=== PATIENT | female | born 1990 | race Caucasian/White ===

== ENCOUNTER → 2017-11-16 09:57 | Outpatient (CLI) | payer BC, SELFPAY ==
[2017-11-16 13:05] LABS: hCG Titer Quant., Serum 5942 mIU/mL (<9 non-preg)
== END ==
PROVIDERS: Visit Provider Obstetrics & Gynecology
DX: N91.2 Amenorrhea, unspecified (principal)
CPT/HCPCS: 36415; 84702

== ENCOUNTER → 2017-11-18 11:48 | Outpatient (CLI) | payer BC, SELFPAY ==
[2017-11-18 15:28] LABS: Chlamydia Trachomatis by PCR Negative (Negative); Neisserai gonorrhoeae by PCR Negative (Negative); Probe Check PASS; Sample Adequacy Control PASS; Specimen Processing Control PASS
[2017-11-22 10:17] LABS: HPV Reflexed? NOT INDICATED
== END ==
PROVIDERS: Visit Provider Obstetrics & Gynecology
DX: Z11.3 Encounter for screening for infections with a predominantly sexual mode of transmission (principal); Z12.4 Encounter for screening for malignant neoplasm of cervix
CPT/HCPCS: 87491; 87591; 88175; G0145

== ENCOUNTER → 2017-12-16 10:57 | Outpatient (CLI) | payer BC, SELFPAY ==
[2017-12-16 15:24] LABS: Absolute Lymphocyte Count 4.12 X10^3/ul (0.83-4.51); Absolute Neutrophil Count 9.8 X10^3/uL (2.0-7.7); Basophil# 0.03 X10^3/uL; Basophil% 0.2 % (0-1); Eosinophil# 0.13 X10^3/uL; Eosinophils% 0.8 % (0-5); Hematocrit 38.8 % (37-47); Lymphocyte # 4.12 X10^3/ul (4.0); Lymphocyte % 26.8 % (19-41); Mean Corp Hgb Conc 33.5 g/gl (32-36); Mean Corpuscular Hgb 29.3 pg (27.0-32.0); Mean Corpuscular Volume 87.4 fL (81-99); Mean Platelet Vol. 9.4 fl (6.2-12.0); Monocyte# 1.26 X10^3/uL; Monocyte% 8.2 % (0-10); Neutrophil % 63.8 % (47-70); Platelet Count 319 K/mm3 (150-450); RBC Distribution Width CV 13.3 % (11.6-14.6); RBC Distribution Width SD 42.7 fl (35.1-43.9); Red Blood Count 4.44 M/mm3 (4.2-5.4); White Blood Count 15.4 K/mm3 (4.4-11.0)
[2017-12-16 15:26] LABS: Color, Urine Yellow (Yellow); Glucose, Dipstick Normal (Normal); Leukocyte Esterase-Dipstick Negative /ul (Negative); Nitrite-Dipstick Negative (Negative); Occult Blood-Urine 10 /ul (Negative); POSITIVE COUNT NO; POSITIVE DIFFERENTIAL NO; POSITIVE MORPHOLOGY NO; Protein-Dipstick 15 mg/dl (Negative); Urine Bilirubin Dipstick Negative (Negative); Urine Clarity Clear (Clear); Urine Urobilinogen Normal (Normal)
[2017-12-16 15:30] LABS: Ketone-Dipstick 150 mg/dl (Negative)
[2017-12-16 15:52] LABS: Thyroid Stim Hormone (TSH) 1.49 uIU/mL (0.358-3.74)
[2017-12-16 16:16] LABS: Amphetamine Urine VISTA NEGATIVE (<1000 ng/mL); Barbiturate Urine VISTA NEGATIVE (< 200 ng/mL); Benzodiazepine Urine VISTA NEGATIVE (< 200 ng/mL); Cocaine Urine VISTA NEGATIVE (< 300 ng/mL); Ecstacy Urine VISTA NEGATIVE (< 500 ng/mL); Methadone Urine VISTA NEGATIVE (< 300 ng/mL); PCP Urine VISTA NEGATIVE (< 25 ng/mL); THC Urine VISTA NEGATIVE (< 50 ng/mL); Vista UDS pH Range 5
[2017-12-17 00:19] LABS: Prenatal RPR NONREACTIVE (NONREACTIVE)
[2017-12-17 10:57] LABS: HIV - WCH Non-Reactive (Nonreactive); Rubella IgG 80.3 IU/mL; Vitamin D,25 Hydroxy 22.6 ng/mL (29.95-100.01)
[2017-12-18 13:48] LABS: HEPATITIS B SURFACE AG Negative (Negative); Hep C Antibodies <0.1 s/co ratio (0.0-0.9)
== END ==
PROVIDERS: Visit Provider Obstetrics & Gynecology
DX: O26.891 Other specified pregnancy related conditions, first trimester (principal); R82.99 Other abnormal findings in urine; Z3A.00 Weeks of gestation of pregnancy not specified
CPT/HCPCS: 36415; 80307; 81002; 82306; 84443; 85025; 86703; 86762; 86803; 87086; 87088; 87340

== ENCOUNTER → 2018-02-11 09:59 | Outpatient (CLI) | payer BC, SELFPAY ==
[2018-02-15 14:07] LABS: AFP MoM Value 1.55 (.); AFP Value-EIA 60.6 ng/mL (.); Comment Report (.); DIA MoM Value 1.57 (.); DIA Value-EIA 249.65 pg/mL (.); DSR (By Age) 850 (.); DSR (Second Trimester) 10000 (.); Gestat. Age Based On As provided (.); Gestational Age 17.7 WEEKS (.); Insulin Dep Diabetes No (.); Maternal Age At EDD 28.1 yr (.); hCG MoM 0.44 (.); hCG Value 11827 mIU/mL (.)
== END ==
PROVIDERS: Visit Provider Obstetrics & Gynecology
DX: Z34.82 Encounter for supervision of other normal pregnancy, second trimester (principal)
CPT/HCPCS: 36415; 82105; 82677; 84702; 86336

== ENCOUNTER → 2018-04-26 08:55 | Outpatient (CLI) | payer BC, SELFPAY ==
[2018-04-26 10:37] LABS: Hematocrit 33.6 % (37-47); Hemoglobin 11.2 g/dl (12.0-15.0); Mean Corp Hgb Conc 33.3 g/gl (32-36); Mean Platelet Vol. 9.9 fl (6.2-12.0); Platelet Count 321 K/mm3 (150-450); RBC Distribution Width CV 13.1 % (11.6-14.6); RBC Distribution Width SD 40.6 fl (35.1-43.9); Red Blood Count 3.86 M/mm3 (4.2-5.4); Scan Indicated on CBC? Y/N NO; White Blood Count 12.6 K/mm3 (4.4-11.0)
[2018-04-26 10:44] LABS: Glucose Challenge Gest 1H 50g 149 mg/dL (70-140)
--- OUTSIDE RECORDS SUMMARY | 2018-06-12 07:26 | XMS RPT_ITS ---
:1990 Author Organization OHIP Care Team Providers Name Role Phone Minerva, Telma Attending Unavailable Minerva, Summer Attending Unavailable Murrell-Sudheer, Summer Referring Unavailable Kb Song Primary Care Unavailable Murrell-Sudheer, Summer Attending Unavailable Murrell-Sudheer, Summer Attending Unavailable Sudheer, Summer Attending Unavailable Murrell-Sudheer, Summer Attending Unavailable Kb Song Primary Care Unavailable Sudheer, Summer Attending Unavailable PROBLEMS PROBLEMS DATE TYPE CONDITION / CODE ATTENDING STATUS SOURCE 05/09/2018 Unknown Z34.83 - Encounter Minerva Active [place] for supervision of [facility] other normal Hospital , third Repository trimester / Z34.83(ICD-10) 02/11/2018 Unknown Z34.82 - Encounter Minerva Active [place] for supervision of [facility] other normal Hospital , second Repository trimester / Z34.82(ICD-10) 12/16/2017 Unknown Z34.81 - Encounter Minerva Active [place] for supervision of [facility] other normal Hospital , first Repository trimester / Z34.81(ICD-10) 11/18/2017 Unknown Z11.3 - Encounter Minerva Active [place] for screening for [facility] infections with a Hospital predominantly Repository sexual mode of transmission / Z11.3(ICD-10) 11/18/2017 Unknown Z12.4 - Encounter Minerva Active [place] for screening for [facility] malignant neoplasm Hospital of cervix / Repository Z12.4(ICD-10) 11/18/2017 Unknown Z32.01 - Encounter Minerva Active [place] for test, [facility] result positive / Hospital Z32.01(ICD-10) Repository 11/16/2017 Unknown N91.2 - Amenorrhea, Minerva Active [place] unspecified / [facility] N91.2(ICD-10) Hospital Repository PROCEDURES PROCEDURES No Procedure Records FoundRESULTS RESULTS VITAMIN D,25 HYDROXY Collected: 2018 Status: F Source: [place] 9:20 AM [facility] HOSPITAL REPOSITORY TYPE CODE TESTS RESULT OUT OF REFERENCE UNITS RANGE LAB L506.1000 29.95-100.01 ng/mL Low Vitamin D 20.8 25-OH Result Comment: Vitamin D 25(OH) Status Range Deficiency <20 ng/mL (50nmol/L) Insuffciency 20 - 30 ng/mL (50 - 75 nmol/L) Sufficiency 30 - 100 ng/mL (75 - 250 nmol/L) Toxicity >100 ng/mL (>250 nmol/L) Performed By: #### L506.1000 #### [facility] [address] [place], [place], [address] GESTATIONAL GTT 3HR Collected: 05/09/2018 Status: F Source: [place] 100G 7:00 AM [facility] REPOSITORY Order Comment: Is Patient Fasting? Y TYPE CODE TESTS RESULT OUT OF RANGE REFERENCE UNITS LAB L501.0650 <105 mg/dL Normal GLU 82 GTT-FASTING Result Comment: GLUCOSE TOLERANCE TEST FOR Reference Interval GESTATIONAL DIABETES Fasting <105 mg/dL 1 hour <190 mg/dl 2 hour <165 mg/dl 3 hour <145 mg/dl LAB L501.0660 <190 mg/dL Normal GLU GTT- 1HR 138 LAB L501.0670 <165 mg/dL Normal GLU GTT- 2HR 147 LAB L501.0680 <145 L High GLU GTT- 3HR 147 Performed By: #### L500.4710 #### [facility] [address] [place], [place], [address] CBC-COMPLETE BLOOD CNT Collected: 04/26/2018 Status: F Source: [place] NO DIFF 9:00 AM [facility] REPOSITORY TYPE CODE TESTS RESULT OUT OF RANGE REFERENCE UNITS LAB L100.1000 4.4-11.0 K/mm3 High WBC 12.6 LAB L100.1200 4.2-5.4 M/mm3 Low RBC 3.86 LAB L100.1300 12.0-15.0 g/dl Low HGB 11.2 LAB L100.1400 37-47 % Low HCT 33.6 LAB L100.1500 81-99 fL Normal MCV 87.0 LAB L100.1600 27.0-32.0 pg Normal MCH 29.0 LAB L100.1700 32-36 g/gl Normal MCHC 33.3 LAB L100.1810 11.6-14.6 % Normal RDW CV 13.1 LAB L100.1820 35.1-43.9 fl Normal RDW SD 40.6 LAB L100.1900 150-450 K/mm3 Normal PLT 321 LAB L100.2000 6.2-12.0 fl Normal MPV 9.9 Performed By: #### L100.0500 #### [facility] [address] [place], [address] GLUCOSE CHALLENGE GEST Collected: 04/26/2018 Status: F Source: [place] 1H 50G 9:00 AM [facility] REPOSITORY TYPE CODE TESTS RESULT OUT OF RANGE REFERENCE UNITS LAB L501.0250 70-140 mg/dL High GLU GEST 149 50g 1H Performed By: #### L501.0250 #### [facility] [address] [place], [address] AFP TETRA QUAD Collected: 02/11/2018 Status: F Source: [place] SCREEN 10:05 AM [facility] REPOSITORY Order Comment: Is Patient ? Y Enter Completed Weeks of Gestation: 17.5 Patient's Weight (LBS.): 162 Race: / White Number of Fetuses: 1 Is Patient Insulin-Dependent Diabetic?: N TYPE CODE TESTS RESULT OUT OF REFERENCE UNITS RANGE LAB L3290.110 . 0 TEST RESULTS: Normal *Screen Negative* LAB L3290.120 . WEEKS 0 GESTATIONAL AGE Normal 17.7 LAB L3290.130 . 0 GEST AGE FROM As Normal provided LAB L3290.140 . yr 1 MATRNL AGE @SRI Normal 28.1 LAB L3290.150 . 0 RACE Normal LAB L3290.160 . lbs 0 WEIGHT Normal 162 LAB L3290.170 . 0 INS DEP DIABETE No Normal LAB L3290.180 . 0 MULT GESTATION No Normal LAB L3290.190 . ng/mL 0 AFP VALUE-EIA Normal 60.6 LAB L3290.200 . 0 AFP MOM VALUE Normal 1.55 LAB L3290.210 . mIU/mL 0 HCG VALUE Normal 81858 LAB L3290.220 . 0 HCG MOM Normal 0.44 LAB L3290.230 . ng/mL 0 UE3 VALUE Normal 1.41 LAB L3290.240 . 0 UE3 MOM Normal 1.23 LAB L3290.250 . pg/mL 0 ANU VALUE-EIA Normal 249.65 LAB L3290.260 . 0 ANU MOM VALUE Normal 1.57 LAB L3290.270 . 0 OSBR RISK Normal 2393 LAB L3290.280 . 0 DSR 2ND TRIMEST Normal 22202 LAB L3290.290 . 0 DSR (BY AGE) Normal 850 LAB L3290.310 . 0 T18 RISK Normal Not increased LAB L3290.320 . 0 T18 (BY AGE) Normal 1:3310 LAB L3290.330 . 0 INTERPRETATION Normal Comment Result Comment: Interpretation: Screen Negative This result is screen negative for OSB, Down Syndrome and Trisomy 18. The AFP MoM and patient specific risks calculated are based on the gestational age and the clinical information provided. This test can identify up to 80% of open neural tube defects. Closed neural tube defects and some open defects may not be detected by this test. The combination of maternal age, AFP, hCG, uE3, and ANU identifies 75-80% of Down Syndrome. The combination of maternal age, AFP, hCG and uE3 identifies 60% of Trisomy 18 pregnancies. The [employer] recommends amniocentesis be offered to women age 35 and older. Recalculations are not recommended when gestational dating by LMP and ultrasound are within 10 days. Performed By: #### L3290.0100 #### [facility] (refer to report for specific site) refer to report for address and phone number URINE DRUG SCREEN Collected: 12/16/2017 Status: F Source: [place] (Mass RootsTA) 10:57 AM [facility] REPOSITORY Order Comment: List of Drugs Taken or Suspected? UNK TYPE CODE TESTS RESULT OUT OF RANGE REFERENCE UNITS LAB L505.0075 TO BE Normal CONFIRMED Result Comment: CONFIRMATORY TESTING FOR ALL POSITIVE URINE DRUG SCREEN RESULTS WILL ONLY BE SENT OUT UPON PHYSICIAN ORDER. VISTA Urine Drug Screen methods provide only preliminary analytical test results. A more specific alternate chemical method must be used in order to obtain a confirmed analytical result. Gas chromatography/mass spectrometery (GC/MS) is the preferred confirmatory method. Clinical consideration and professional judgement should be applied to any drug of abuse test result, particularly when preliminary positive results are used. URINE TCA TESTING MUST BE ORDERED SEPARATELY. USE TEST MNEMONIC: [facility] LAB L505.5005 VISTA UDS PH 5 Normal LAB L505.5015 <1000 ng/mL AMPHETAMINES Normal NEGATIVE LAB L505.5025 < 200 ng/mL BARBITIURATES Normal NEGATIVE LAB L505.5035 < 200 ng/mL BENZODIAZIPINE Normal NEGATIVE LAB L505.5045 < 300 ng/mL COCAINE Normal NEGATIVE LAB L505.5055 < 500 ng/mL ECSTACY Normal NEGATIVE LAB L505.5065 < 300 ng/mL METHADONE Normal NEGATIVE LAB L505.5075 < 300 ng/mL OPIATES Normal NEGATIVE LAB L505.5085 < 25 ng/mL PCP Normal NEGATIVE LAB L505.5095 < 50 ng/mL THC Normal NEGATIVE Performed By: #### L505.5000 #### [facility] [address] [place], [place], [id number] CBC W/DIFF, AUTOMATED Collected: 12/16/2017 Status: F Source: [place] 10:57 AM [facility] REPOSITORY TYPE CODE TESTS RESULT OUT OF RANGE REFERENCE UNITS LAB L100.1000 4.4-11.0 K/mm3 High WBC 15.4 LAB L100.1200 4.2-5.4 M/mm3 Normal RBC 4.44 LAB L100.1300 12.0-15.0 g/dl Normal HGB 13.0 LAB L100.1400 37-47 % Normal HCT 38.8 LAB L100.1500 81-99 fL Normal MCV 87.4 LAB L100.1600 27.0-32.0 pg Normal MCH 29.3 LAB L100.1700 32-36 g/gl Normal MCHC 33.5 LAB L100.1810 11.6-14.6 % Normal RDW CV 13.3 LAB L100.1820 35.1-43.9 fl Normal RDW SD 42.7 LAB L100.1900 150-450 K/mm3 Normal PLT 319 LAB L100.2000 6.2-12.0 fl Normal MPV 9.4 LAB L100.2100 47-70 % Normal NEUT% 63.8 LAB L100.2200 19-41 % Normal LY% 26.8 LAB L100.2300 0-10 % Normal MONO% 8.2 LAB L100.2400 0-5 % Normal EO% 0.8 LAB L100.2500 0-1 % Normal BASO% 0.2 LAB L100.2550 0.0-0.9 % Normal IM GRAN % 0.200 Result Comment: IG% - Immature Granulocytes (promyelocytes, myelocytes and metamyelocytes) > 1% indicates that a LEFT SHIFT is Present. LAB L100.2620 2.0-7.7 X10 3/uL High Absolute Neut 9.8 LAB L100.2720 0.83-4.51 X10 3/ul Normal Absolute Lymph 4.12 Performed By: #### L100.0100 #### [facility] [address] [place], [place], [id number] URINALYSIS, ROUTINE Collected: 12/16/2017 Status: F Source: [place] (DIPSTICK) 10:57 AM [facility] REPOSITORY Order Comment: How was Urine Obtained? CLEAN CATCH TYPE CODE TESTS RESULT OUT OF RANGE REFERENCE UNITS LAB L400.3000 Yellow COLOR Normal Yellow LAB L400.3050 Clear Normal CLARITY Clear LAB L400.3200 Normal mg/dl Normal GLUCOSE, UR Normal LAB L400.3300 Negative mg/dL Normal BILIRUBIN URINE Negative LAB L400.3400 Negative mg/dl High KETONE UR 150 Result Comment: CRITICAL VALUE *H CRITICAL VALUE VERIFIED. CALLED TO LINDA HAYES MD 12/16/17 [address] RESULTS READ BACK BY SAME. LAB L400.3465 1.002-1.030 Normal SP.GR. DIPSTX 1.020 LAB L400.3550 5.0 - 8.0 pH Normal UR 6.0 LAB L400.3600 Negative mg/dl High 15 PROT DIPSTX LAB L400.3700 Normal mg/dl Normal UROBILI Normal LAB L400.3750 Negative Normal NITRITE UR Negative LAB L400.3780 Negative /ul High 10 OCCULT BLOOD-UR LAB L400.3800 Negative /ul Normal LEUK ESTERASE Negative Performed By: #### L400.2010 #### [facility] [address] [place], [place], [address] THYROID STIM HORMONE Collected: 12/16/2017 Status: F Source: [place] (TSH) 10:57 AM [facility] REPOSITORY TYPE CODE TESTS RESULT OUT OF RANGE REFERENCE UNITS LAB L501.9520 0.358-3.74 uIU/mL Normal TSH 1.49 Performed By: #### L501.9520 #### [facility] [address] [facility] [place], [address] T AND S-NO Collected: 12/16/2017 Status: F Source: [place] CHARGE W/PNP 10:57 AM [facility] REPOSITORY Order Comment: Reason for Type AND Screen/Red Cells: Surgery? N TYPE CODE TESTS RESULT OUT OF RANGE REFERENCE UNITS LAB B10.0800 O Normal BLOOD POSITIVE TYPE GEL LAB B100.4050 Normal Ab SCREEN NEGATIVE GEL Performed By: #### B100.7550 #### [facility] [address] [place], [address] RPR Collected: 12/16/2017 Status: F Source: CARY 10:57 AM [facility] REPOSITORY TYPE CODE TESTS RESULT OUT OF REFERENCE UNITS RANGE LAB L700.5100 NONREACTIVE Normal RPR NONREACTIVE Performed By: #### L700.5100 #### [facility] [address] [place], [address] VITAMIN D,25 HYDROXY Collected: 12/16/2017 Status: F Source: CARY 10:57 AM [facility] REPOSITORY TYPE CODE TESTS RESULT OUT OF REFERENCE UNITS RANGE LAB L506.1000 29.95-100.01 ng/mL Low Vitamin D 22.6 25-OH Result Comment: Vitamin D 25(OH) Status Range Deficiency <20 ng/mL (50nmol/L) Insuffciency 20 - 30 ng/mL (50 - 75 nmol/L) Sufficiency 30 - 100 ng/mL (75 - 250 nmol/L) Toxicity >100 ng/mL (>250 nmol/L) Performed By: #### L506.1000, L509.4000, L3890.6005 #### [facility] [address] [place], [address] RUBELLA IGG Collected: 12/16/2017 Status: F Source: CARY 10:57 AM [facility] REPOSITORY TYPE CODE TESTS RESULT OUT OF RANGE REFERENCE UNITS LAB L509.4000 IU/mL Normal Rubella IgG 80.3 Result Comment: Antibody results Interpretation of Immune Status < 5 IU/ml Presumed Non-immune 5 - < 10 IU/ml Equivocal > or = 10 IU/ml Presumed Immune Performed By: #### L506.1000, L509.4000, L3890.6005 #### [facility] [address] [place], [address] HIV - W[facility] Collected: 12/16/2017 Status: F Source: [place] 10:57 AM [facility] REPOSITORY TYPE CODE TESTS RESULT OUT OF RANGE REFERENCE UNITS LAB L3890.6005 Nonreactive Normal HIV - [facility] Non-Reactive Performed By: #### L506.1000, L509.4000, L3890.6005 #### [facility] [address] [place], [address] Observed: 12/16/2017 Status: F Source: [place] CULTURE, URINE 10:57 AM [facility] REPOSITORY PLEASE ADD TO URINE FROM THIS MORNING Urine Culture Below infection level. Possible skin contamination. ORGANISM 1: Mixed Gram Positive Organisms [place] Count <1000 Performed By: #### M100.0650 #### [facility] [address] [facility] [place], [address] HEPATITIS B SURFACE Collected: 12/16/2017 Status: F Source: [place] AG 10:57 AM [facility] REPOSITORY TYPE CODE TESTS RESULT OUT OF RANGE REFERENCE UNITS LAB L3100.0400 Negative Normal HB Negative SURF AG Result Comment: Performed at: [facility] [id number] Property Custodian: Charles Wall PhD, Phone: [phone] Performed By: #### L3100.0390, L3100.0625 #### [facility] (refer to report for specific site) refer to report for address and phone number HEPATITIS C ANTIBODIES Collected: 12/16/2017 Status: F Source: [place] 10:57 AM [facility] REPOSITORY TYPE CODE TESTS RESULT OUT OF RANGE REFERENCE UNITS LAB L3100.0650 0.0-0.9 s/co ratio Normal HEP C AB <0.1 Result Comment: Negative: < 0.8 Indeterminate: 0.8 - 0.9 Positive: > 0.9 The CDC recommends that a positive HCV antibody result be followed up with a HCV Nucleic Acid Amplification test (418123). Performed By: #### L3100.0390, L3100.0625 #### [facility] (refer to report for specific site) refer to report for address and phone number CT/NG W[facility] BY PCR Collected: 11/18/2017 Status: F Source: [place] 11:00 AM [facility] REPOSITORY Order Comment: CYTOLOGY INFORMATION: - CLINICAL INFORMATION: - DATE LMP/MENOPAUSE: 10-10-17 LMP - COLLECTION VIAL: Thin Prep Vial - DYNAMIC ETCHING PROCESSOR SOURCE: CERVICAL/ENDOCERVICAL - COLLECTION TECHNIQUE: BRUSH/SPATULA TYPE CODE TESTS RESULT OUT OF RANGE REFERENCE UNITS LAB L8200.2100 Negative Normal Chlam Negative Trac PCR LAB L8200.2200 Negative Normal NG by Negative PCR Performed By: #### L8200.2000 #### [facility] [address] [place], [address] PAP I-G W/RFX Collected: 11/18/2017 Status: F Source: [place] HRHPV-APTIMA 11:00 AM [facility] REPOSITORY Order Comment: CYTOLOGY INFORMATION: - CLINICAL INFORMATION: - DATE LMP/MENOPAUSE: 10-10-17 LMP - COLLECTION VIAL: Thin Prep Vial - DYNAMIC ETCHING PROCESSOR SOURCE: CERVICAL/ENDOCERVICAL - COLLECTION TECHNIQUE: BRUSH/SPATULA Specimen Comment: [id number] Specimen Comment: No. of containers..01 ThinPrep Vial TYPE CODE TESTS RESULT OUT OF RANGE REFERENCE UNITS LAB L7400.0800 . Normal DIAGN Comment Result Comment: NEGATIVE FOR INTRAEPITHELIAL LESION AND MALIGNANCY. LAB L7400.0900 . Normal ADEQ Comment Result Comment: Satisfactory for evaluation. Endocervical and/or squamous metaplastic cells (endocervical component) are present. LAB L7400.1400 . Normal PERFORM Comment Result Comment: Barak Sharif, Delphi Developer (ASCP) LAB L7400.2575 . Normal TEST METHOD Comment Result Comment: This liquid based ThinPrep(R) pap test was screened with the use of an image guided system. LAB L7400.2600 . Normal . COMM LAB L7400.2700 . Normal PAPSMR Comment Result Comment: The Pap smear is a screening test designed to aid in the detection of premalignant and malignant conditions of the uterine cervix. It is not a diagnostic procedure and should not be used as the sole means of detecting cervical cancer. Both false-positive and false-negative reports do occur. LAB L7400.2800 . Normal HPV RFLX Comment Result Comment: The HPV DNA reflex criteria were not met with this specimen result therefore, no HPV testing was performed. Performed at: [facility] [id number] Property Custodian: Shereen Melendez MD, Phone: [phone] Performed By: #### L7400.0353 #### [facility] (refer to report for specific site) refer to report for address and phone number HCG TITER QUANT., Collected: 11/16/2017 Status: F Source: [place] SERUM 10:01 AM [facility] REPOSITORY TYPE CODE TESTS RESULT OUT OF RANGE REFERENCE UNITS LAB L700.8000 <9 non-preg mIU/mL High HCG 5942 QUANT. Performed By: #### L700.8000 #### [facility] [address] [place], [place], [address] ALLERGIES ALLERGIES DATE TYPE / CODE NAME / CODE REACTION SEVERITY SOURCE 06/04/2016 Drug No Known Unknown [facility] Allergy/4160 Allergies/F00 Hospital 35083(SNOMED 1495795(RXNOR Repository CT) M) ENCOUNTERS ENCOUNTERS ADMIT/DISCHARGE ACCOUNT ADMITTING ENCOUNTER LOCATION SOURCE NUMBER CLASS 2018 [id number] Ambulatory [place] 5 [facility] ing:WOBLAB Repository 05/09/2018 [id number] Ambulatory [place] 1 [facility] ing:LAB Repository 04/26/2018 [id number] Ambulatory [place] 2 [facility] ing:WOBLAB Repository 02/11/2018 [id number] Ambulatory [place] 3 [facility] ing:WOBLAB Repository 12/16/2017 [id number] Ambulatory [place] 1 [facility] ing:WO[place]AB Repository 11/18/2017 [id number] Ambulatory [place] 6 [facility] ing:LABSPEC Repository 11/16/2017 [id number] Ambulatory [place] 2 [facility] ing:WOBLAB Repository PAYERS PAYERS ENCOUNTER GUARANTOR PAYER SUBSCRIBER SOURCE 2018 EMMIE N Primary EMMIE N [place] [id number] Insurance:ANTHEMPolic [place]: Critical access hospital [place]: [id number] [id number] Repository [address]Uvi: (330) [place] Date:0410-53-33CS [phone] () [address], [place] [address]AJ: 2018 Secondary NOT GIVENUNK [place] Insurance:SELF PAY [facility]: Effective Repository Date:2018 05/09/2018 EMMIE N Primary EMMIE N [place] [id number] Insurance:ANTHEMPolic [place]: [address] y Number: [id number], [place] [id number] Repository [address]Mmm: (330) [place] Date:[id number] [phone] () [address] [address]WT: 05/09/2018 Secondary NOT GIVENUNK [place] Insurance:SELF PAY [facility] Number: Effective Repository Date:2018-05-03 04/26/2018 EMMIE N Primary EMMIE N [place] [id number] Insurance:ANTHEMPolic [place]: [address] y Number: [id number], [place] [id number] Repository [address]Abw: (330) [place]isol Date:[id number] [phone] () [address], [place] [address]LV: 04/26/2018 Secondary NOT GIVENUNK [place] Insurance:SELF PAY [facility] Number: Effective Repository Date:2018-04-26 02/11/2018 EMMIE Primary EMMIE [place] [id number] Insurance:ANTHEMPolic [place]: [address] y Number: [id number], [place] [id number] Repository [address]Dqf: (330) marisol Date:6819-50-17TP [phone] () [address], [place] [address]EC: 02/11/2018 Secondary NOT GIVENUNK [place] Insurance:SELF PAY [facility] Number: Effective Repository Date:2018-02-11 12/16/2017 EMMIE Primary EMMIE [place] [id number] Insurance:ANTHEMPolic [place]: [address] y Number: [id number], [place] [id number] Repository [address]Jsk: (330) [place]isol Date:6609-64-06VN [phone] () [address], [place] [address]BQ: 12/16/2017 Secondary NOT GIVENUNK [place] Insurance:SELF PAY [facility] Number: Effective Repository Date:2017-12-16 11/18/2017 EMMIE Primary EMMIE [place] [id number] Insurance:ANTHEMPolic [place]: [address] y Number: [id number], [place] [id number] Repository [address]Hoz: (330) [place] Date:9607-37-46GL [phone] () [address], [place] [address]GW: 11/18/2017 Secondary NOT GIVENUNK [place] Insurance:SELF PAY [facility] Number: Effective Repository Date:2017-11-18 11/16/2017 EMMIE Primary EMMIE Baze [id number] Insurance:ANTHEMPolic [place]: [address] y Number: [id number], [place] [id number] Repository [address]Ecs: (330) marisol Date:1793-52-10VS [phone] () [address]MCXL, [place] [address]NI: 11/16/2017 Secondary NOT GIVENUNK [place] Insurance:SELF PAY [facility] Number: Effective Repository Date:2017-11-16
== END ==
PROVIDERS: Visit Provider Obstetrics & Gynecology
DX: Z34.83 Encounter for supervision of other normal pregnancy, third trimester (principal)
CPT/HCPCS: 36415; 82950; 85027

== ENCOUNTER → 2018-05-09 06:48 | Outpatient (CLI) | payer BC, SELFPAY ==
[2018-05-09 08:22] LABS: Glucose GTT-Gestation. Fasting 82 mg/dL (<105)
[2018-05-09 08:22] LABS: Glucose GTT-Gestational 1 Hr 138 mg/dL (<190)
[2018-05-09 09:32] LABS: Glucose GTT-Gestational 2 Hr 147 mg/dL (<165)
[2018-05-09 10:48] LABS: Glucose GTT-Gestational 3 Hr 147 L (<145)
== END ==
PROVIDERS: Family Provider Family Medicine; PCP Family Medicine; Referring Provider Obstetrics & Gynecology; Visit Provider Obstetrics & Gynecology
DX: O24.912 Unspecified diabetes mellitus in pregnancy, second trimester (principal)
CPT/HCPCS: 36415; 82951; 82952

== ENCOUNTER → 2018-05-19 09:16 | Outpatient (CLI) | payer BC, SELFPAY ==
[2018-05-19 12:06] LABS: Vitamin D,25 Hydroxy 20.8 ng/mL (29.95-100.01)
== END ==
PROVIDERS: Family Provider Family Medicine; PCP Family Medicine; Visit Provider Obstetrics & Gynecology
DX: O26.893 Other specified pregnancy related conditions, third trimester (principal); E55.9 Vitamin D deficiency, unspecified; Z3A.00 Weeks of gestation of pregnancy not specified
CPT/HCPCS: 36415; 82306

== ENCOUNTER → 2018-06-14 14:09 | Outpatient (CLI) | payer BC, SELFPAY | PROVIDERS: Visit Provider Obstetrics & Gynecology | DX: Z36.85 Encounter for antenatal screening for Streptococcus B (principal) | CPT/HCPCS: 87077; 87081; 87186 ==

== ENCOUNTER 2018-06-17 08:40 | Outpatient (CLI) | payer BC, SELFPAY ==
[2018-06-17 09:08] VITALS: BMI 32.9
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
== END 2018-06-17 13:25 | disposition home or self-care (01) ==
LOC: WPOUT 08:48 → WP 08:49
PROVIDERS: Referring Provider Obstetrics & Gynecology; Visit Provider Obstetrics & Gynecology
DX: O26.893 Other specified pregnancy related conditions, third trimester (principal); S39.91XA Unspecified injury of abdomen, initial encounter; Z3A.35 35 weeks gestation of pregnancy; V89.2XXA Person injured in unspecified motor-vehicle accident, traffic, initial encounter; Y93.I9 Activity, other involving external motion; Y92.410 Unspecified street and highway as the place of occurrence of the external cause; Y99.8 Other external cause status
CPT/HCPCS: 59025; 59050; 99218; G0378

== ENCOUNTER 2018-07-04 11:10 | Inpatient (IN) | payer BC, SELFPAY ==
[2018-07-04] VITALS (13 sets, daily range): BP systolic 94–131; BP diastolic 37–73; PULSE 84–107; RESP 12–20; TEMP 36.3–37.3; O2SAT 95–100; BMI 33.0
[2018-07-04] MEDS: Lactated Ringers 1,000 ML 150 ML IV ×2 (12:05→15:14)
[2018-07-04 12:42] LABS: International Normalized Ratio 0.9; Prothrombin Time (Protime)PT. 12.4 SECONDS (11.7-14.9)
[2018-07-04 12:43] LABS: Absolute Neutrophil Count 8.5 X10^3/uL (2.0-7.7); Basophil# 0.02 X10^3/uL; Basophil% 0.2 % (0-1); Eosinophil# 0.15 X10^3/uL; Eosinophils% 1.2 % (0-5); Hematocrit 36.3 % (37-47); Hemoglobin 11.8 g/dl (12.0-15.0); Lymphocyte % 20.2 % (19-41); Mean Corp Hgb Conc 32.5 g/gl (32-36); Mean Corpuscular Hgb 27.6 pg (27.0-32.0); Mean Platelet Vol. 10.2 fl (6.2-12.0); Monocyte# 1.09 X10^3/uL; Monocyte% 8.8 % (0-10); Neutrophil # 8.53 X10^3/uL (2.7-7.7); Neutrophil % 69.1 % (47-70); Partial Thromboplast Time 27.5 Seconds (24.1-36.2); Platelet Count 286 K/mm3 (150-450); RBC Distribution Width CV 14.4 % (11.6-14.6); RBC Distribution Width SD 44.4 fl (35.1-43.9); Red Blood Count 4.27 M/mm3 (4.2-5.4); White Blood Count 12.4 K/mm3 (4.4-11.0)
[2018-07-04 12:46] LABS: POSITIVE COUNT NO; POSITIVE DIFFERENTIAL NO; POSITIVE MORPHOLOGY NO
[2018-07-04 13:03] LABS: AST(SGOT) 15 U/L (15-37); Alanine Aminotransfer ALT/SGPT 14 U/L (13-56); Albumin, Serum 2.7 g/dL (3.2-5.0); Alkaline Phosphatase 162 U/L (45-117); Bilirubin, Direct 0.08 mg/dL (0.00-0.30); Globulin 4.5 g/dL (2.2-4.2); Protein, Total 7.2 g/dL (6.4-8.2)
--- NOTE | 2018-07-04 14:00 | PCM.HP.OB ---
- Problem List (1) 38 weeks gestation of Status: Acute (2) Oligohydramnios Status: Acute Qualifiers: Fetus number: single or unspecified fetus Trimester: third trimester Qualified Code(s): O41.03X0 - Oligohydramnios, third trimester, not applicable or unspecified History Date of Admission: 07/04/18 Final SRI: 07/17/18 Final SRI Source: [place] <20 weeks Gestational age: 38 Weeks and 1 Days History of this : This is a 28 year-old, G [1], P [0], at 38 1/7 weeks gestational age sent from office for schedule section. Patient monitored the last week for decreasing ADELAIDE and breech presentation. Today ADELAIDE 2.2cm and NST with late deceleration noted. She was sent here for extended monitoring with plan for Primary section later today. +FM, no leaking of fluid or vaginal bleeding. No contractions. Also c/o intense pruritis. Allergies No Known Allergies Allergy (Verified 07/04/18 12:32) Home Medications: Home Medications Vits [Prenatabs FA ] 1 tab PO DAILY 06/17/18 Smoking Status: Current every day smoker Alcohol: None Number of Fetus(es): 1 Heart Tracin, moderate variability, + accelerations, no decelerations TOCO Analysis: History Past Pregnancies: Past Pregnancies Delivery Date Name GA/Weeks Outcome Route Weight Gender Labor Length Anesthesia Delivery Location Provider FOB Labs: Mom's Labs & Results 07/04/18 07/04/18 07/04/18 12:05 12:05 12:05 WBC 12.4 H RBC 4.27 Hgb 11.8 L Hct 36.3 L MCV 85.0 MCH 27.6 MCHC 32.5 RDW 14.4 RDW Differential 44.4 H Plt Count 286 MPV 10.2 Immature Gran % (Auto) 0.500 Neut % (Auto) 69.1 Lymph % (Auto) 20.2 Cros[place] % (Auto) 8.8 Eos % (Auto) 1.2 Baso % (Auto) 0.2 Absolute Neuts (auto) 8.5 H Absolute Lymphs (auto) 2.50 Total Counted Not Reportable PT 12.4 INR 0.9 APTT 27.5 Total Bilirubin Direct Bilirubin AST ALT Alkaline Phosphatase Total Protein Albumin Globulin Blood Type O POSITIVE Antibody Screen NEGATIVE 07/04/18 12:05 WBC RBC Hgb Hct MCV MCH MCHC RDW RDW Differential Plt Count MPV Immature Gran % (Auto) Neut % (Auto) Lymph % (Auto) [place] % (Auto) Eos % (Auto) Baso % (Auto) Absolute Neuts (auto) Absolute Lymphs (auto) Total Counted PT INR APTT Total Bilirubin 0.20 Direct Bilirubin 0.08 AST 15 ALT 14 Alkaline Phosphatase 162 H Total Protein 7.2 Albumin 2.7 L Globulin 4.5 H Blood Type Antibody Screen Course Did the patient receive Yes care? Labs Blood Type: O RH: POSITIVE RPR/VDRL/Syphilis Nonreactive Rubella status Immune HbSAg Negative Date Done: 12/16/17 Chlamydia Negative Gonorrhea Negative HIV/AIDS Non-Reactive Group B Strep: Positive Current Obstetrical History Gestational Diabetes No Incompetent Cervix No Infertility No IUGR No Macrosomia No Hypertension/Pre-eclampsia No Placenta Previa/Abruption No PTL/PROM No Uterine anomaly No Oligohydramnios Yes: low fluid levels Polyhydramnios No Multiple gestation No Past Medical History Asthma No Diabetes No Hypertension No Heart disease No Mitral valve prolapse No Neurologic/Seizure disorder/ No Migraines Kidney disease No Liver disease No Varicosities No Clotting disorders/Hx of DVT No Thyroid Dysfunction No Other medical diseases No Psychiatric disorders No Major trauma No Abnormal PAP smear No Sleep apnea No Mammogram in the last 2 years No Social History Marital Status: Alleged father Graeme Hx Smoking Yes Smoking Status Current every day smoker Expected Infant Delivery Method: Scheduled Section Review of Systems Eyes: Denies: Vision Change Cardiovascular: Denies: Edema Respiratory: Denies: Shortness of Breath Gastrointestinal: Denies: Abdominal Pain, Nausea, Vomiting Gynecological: Denies: Vaginal bleeding Skin: Reports: Pruritis Physical Exam Vitals: AVSS General: Alert, Oriented x3, Cooperative, No apparent distress HEENT: Atraumatic, Normocephalic Cardiovascular: Regular rate, Regular Rhythm, Normal S1, Normal S2 Lungs: Clear to auscultation, Normal air movement Abdomen: Soft, Non Tender, Non-Distended, Gravid Extremities:: No edema Neurological: Neuro grossly intact MORPHOLOGIST: Normal external genitalia Estimated gestational size: Appropriate for gestational size Presentation: Breech Assessment/Plan All Active Problems (This Medical Record has been edited. Action required.) 38 weeks gestation of (Acute) Oligohydramnios (Acute) This is a 28 year-old, G [1], P []0, at 38 1/7 weeks gestational age. -Admit for extended monitoring and section as scheduled -NPO
[2018-07-04] MEDS: Lactated Ringers 1,000 ML 999 ML IV (14:30)
[2018-07-04] MEDS: Sodium Citrate/Citric Acid 30 ML UDC PO (15:33)
[2018-07-04] MEDS: Cefazolin 2 GM in 0.9% Normal Saline 100 ML IV (16:31)
[2018-07-04] MEDS: Oxytocin 30 units/NS 500 ml 30 UNITS/500 ML IV.SOLN 167 UNITS IV (17:00)
[2018-07-04] MEDS: Ketorolac 30 MG/ML Syringe IV ×2 (17:20→22:13)
--- NOTE | 2018-07-04 17:27 | PLAC_PTH ---
PATIENT: EMMIE WHEATLEY LOC: [facility] U#:[id number] AGE/SX: 28/F ROOM: WP004 RE07/04/[address]: Dr. Telma Willard MD : 1990 BED: 1 DIS: 07/06/2018 SPEC #: [id number] RECD: 07/04/18 19:14 STATUS: TWAN LORETA #: [id number] GONZALO: 07/04/18 17:[address]: Telma Webb DEPT: SURGICAL PATHOLOGY RECD BY: Macho Rosario Tissues: Placenta, NOS Procedures: Surgery Specimen Level V HEADER OPERATION: Primary section PRE-OP DIAGNOSIS: Severe oligohydramnios, breech presentation TISSUE SUBMITTED: Placenta MICROSCOPIC DIAGNOSIS Hines placenta (433 gm): Umbilical cord - trivascular with no inflammation. Placental membranes - no pathologic change. Placental disc - Patricia-Angel change and mild chronic decidual inflammation. AM:geoffrey 07/06/18 MICROSCOPIC DESCRIPTION Slides are reviewed. GROSS DESCRIPTION SPECIMEN: PLACENTA / CLINICAL INFORMATION: A. Weight: 2.9 kg B. Gestational Age: 38 weeks C. Sex: Male PLACENTAL WEIGHT (POST FIXATION): 433 gm PLACENTAL DIMENSIONS: 16 x 14 x 3 cm PLACENTAL SHAPE: Usual ovoid PLACENTAL WEIGHT FOR GESTATIONAL AGE: Within 10-99th percentile MEMBRANES - Present A. Insertion: Marginal B. Site of rupture from edge: The membranes are fragmented and distance of rupture cannot be assessed. C. Color of membrane: Orozco-mandujano D. Abnormalities: None UMBILICAL CORD - Present A. Color: Orozco-mandujano B. Insertion: Paracentral C. Length: 19 cm D. Diameter: 1.2 cm E. Number of vessels: Three F. Abnormalities: None PLACENTAL DISC - Present A. Color of surface: Orozco-mandujano B. surface abnormalities: None C. Maternal cotyledons: Intact with minimal tears D. Attached retro placental clot: No clot E. Cut surface: Dark red and spongy F. Lesions: None G. Separate clot: Absent SECTIONS SUBMITTED: 1. Membrane roll 2. Cord, maternal end 3. Cord, end, lesion 4. Placental disc, and maternal surfaces 5. Placental disc, and maternal surfaces 6. Placental disc, and maternal surfaces SVITLANA:geoffrey 07/05/18 TC:5 CPT: 34262
--- NOTE | 2018-07-04 17:33 | PCM.OPRPT ---
Problem List (1) 38 weeks gestation of Status: Acute (2) Oligohydramnios Status: Acute Qualifiers: Fetus number: single or unspecified fetus Trimester: third trimester Qualified Code(s): O41.03X0 - Oligohydramnios, third trimester, not applicable or unspecified (3) delivery delivered Status: Acute Delivery Classification: Scheduled Final SRI: 07/17/18 Gestational age: 38 Weeks and 1 Days Indications: 28-year-old 1 admitted at 38-1/7 weeks gestational age for scheduled for breech presentation with ADELAIDE of 2.2 cm. Indications for : Breech, Oligohydramnios Description of Procedure: Normal-appearing adnexa and uterus Procedure: The patient was taken to the operating room and spinal analgesia was administered. She is placed in a dorsal supine position with left lateral tilt. Timeout was performed the perineum and abdomen were prepped and draped in sterile fashion. And the spinal was found to be adequate. A Pfannenstiel incision was made using a scalpel and brought down to incise the subcutaneous tissue and rectus fascia at the midline. Subcutaneous tissue was bluntly dissected off the fascia laterally. The fascial incision was dissected laterally and cephalad using curved Burnett scissors. The superior leaflet of the rectus fascia was grasped using Angel clamps and bluntly dissected and sharply dissected from the underlying rectus muscle. In a similar fashion the inferior rectus fascia was dissected from the underlying muscle. The rectus muscles were bluntly at the midline. The peritoneum was identified and entered [sharply]. The bladder blade was placed into the abdomen and the vesicouterine peritoneal fold identified. The fold was incised and a bladder flap created. Bladder blade was then repositioned to the abdomen. A low transverse hysterotomy was made using the [Metzenbaum scissors] to level of the membranes. The hysterotomy was extended bluntly cephalad and caudad. The membranes were then ruptured revealing clear fluid. The breech was elevated and brought to the level of the hysterotomy. The breech was delivered ofelia breech with spontaneous delivery of the lower extremities and using gentle bidirectional rotation the infant delivered to the shoulders. The upper extremities were swept through the hysterotomy and the Osawdaeii-Zapgbbd-Ivty maneuver was performed with delivery of the head. The cord was doubly clamped and cut after 30 seconds. The infant was passed to awaiting [nursery personnel]. The placenta was [expressed] from the uterus and appeared intact on inspection however the cord insertion was tenuous and cord thin. The uterus was cleared of debris. The hysterotomy was then repaired using 0 Vicryl running lock suture. A second imbricating layer was also placed for additional hemostasis. The bladder blade was removed. The anterior cul-de-sac was cleared of debris. The peritoneum and rectus muscles were reapproximated using 2-0 Vicryl running suture. The rectus fascia was closed using 0 Stratafix running suture. The subcutaneous tissue was reapproximated using 2-0 Vicryl. The skin was closed using 3-0 Monocryl subcuticularly by the RNA under my supervision. A Mepilex occlusive dressing was placed over the incision. The fundus was firm. The patient was then transferred to the recovery room without complication. Sponge, instrument, and needle counts were correct ?2. Amniotic Membrane Rupture Type: Artificial Amniotic Fluid Description: Clear Placenta Disposition: [facility] Drain: Beltran to straight drain Fluids Replaced: 1100 mL Cord Entanglement: None Nuchal Cord Compression: Without compression Cord Vessel Description: 3 Vessels Esitmated Blood Loss (ml): 600 Gender: Male (1 minute): 8 (5 minute): 9 Delayed cord clamping: Yes Pre-op Antibiotic Given: Ancef 2 grams IV x1 Pt instructed on risks of surgery: Bleeding, Anesthesia Risks, Infection, Injury to surrounding structure(s) including bowel and bladder Complications: None - Admit VTE Documentation VTE Present on Admission: No VTE Mechan Device Prophylaxis: SCD's VTE Pharm Prophylaxis ordered?: No Vaginal Delivery Final SRI: 07/17/18 Gestational age: 38 Weeks and 1 Days
--- NOTE | 2018-07-04 17:39 | OP.PCM_ITS ---
Problem List (1) 38 weeks gestation of Status: Acute (2) Oligohydramnios Status: Acute Qualifiers: Fetus number: single or unspecified fetus Trimester: third trimester Qualified Code(s): O41.03X0 - Oligohydramnios, third trimester, not applicable or unspecified (3) delivery delivered Status: Acute Delivery Classification: Scheduled Final SRI: 07/17/18 Gestational age: 38 Weeks and 1 Days Indications: 28-year-old 1 admitted at 38-1/7 weeks gestational age for scheduled C- section for breech presentation with ADELAIDE of 2.2 cm. Indications for : Breech, Oligohydramnios Description of Procedure: Normal-appearing adnexa and uterus Procedure: The patient was taken to the operating room and spinal analgesia was administered. She is placed in a dorsal supine position with left lateral tilt. Timeout was performed the perineum and abdomen were prepped and draped in sterile fashion. And the spinal was found to be adequate. A Pfannenstiel incision was made using a scalpel and brought down to incise the subcutaneous tissue and rectus fascia at the midline. Subcutaneous tissue was bluntly dissected off the fascia laterally. The fascial incision was dissected laterally and cephalad using curved Burnett scissors. The superior leaflet of the rectus fascia was grasped using Angel clamps and bluntly dissected and sharply dissected from the underlying rectus muscle. In a similar fashion the inferior rectus fascia was dissected from the underlying muscle. The rectus muscles were bluntly at the midline. The peritoneum was identified and entered [sharply]. The bladder blade was placed into the abdomen and the vesicouterine peritoneal fold identified. The fold was incised and a bladder flap created. Bladder blade was then repositioned to the abdomen. A low transverse hysterotomy was made using the [Metzenbaum scissors] to level of the membranes. The hysterotomy was extended bluntly cephalad and caudad. The membranes were then ruptured revealing clear fluid. The breech was elevated and brought to the level of the hysterotomy. The breech was delivered ofelia breech with spontaneous delivery of the lower extremities and using gentle bidirectional rotation the infant delivered to the shoulders. The upper extremities were swept through the hysterotomy and the Mischnoty-Gmcezfh-Nvjm maneuver was performed with delivery of the head. The cord was doubly clamped and cut after 30 seconds. The was passed to awaiting [nursery personnel]. The placenta was [expressed] from the uterus and appeared intact on inspection however the cord insertion was tenuous and cord thin. The uterus was cleared of debris. The hysterotomy was then repaired using 0 Vicryl running lock suture. A second imbricating layer was also placed for additional hemostasis. The bladder blade was removed. The anterior cul-de-sac was cleared of debris. The peritoneum and rectus muscles were reapproximated using 2-0 Vicryl running suture. The rectus fascia was closed using 0 Stratafix running suture. The subcutaneous tissue was reapproximated using 2-0 Vicryl. The skin was closed using 3-0 Monocryl subcuticularly by the RNA under my supervision. A Mepilex occlusive dressing was placed over the incision. The fundus was firm. The patient was then transferred to the recovery room without complication. Sponge, instrument, and needle counts were correct ?2. Amniotic Membrane Rupture Type: Artificial Amniotic Fluid Description: Clear Placenta Disposition: [facility] Drain: Beltran to straight drain Fluids Replaced: 1100 mL Cord Entanglement: None Nuchal Cord Compression: Without compression Cord Vessel Description: 3 Vessels Esitmated Blood Loss (ml): 600 Infant Gender: Male (1 minute): 8 (5 minute): 9 Delayed cord clamping: Yes Pre-op Antibiotic Given: Ancef 2 grams IV x1 Pt instructed on risks of surgery: Bleeding, Anesthesia Risks, Infection, Injury to surrounding structure(s) including bowel and bladder Complications: None - Admit VTE Documentation VTE Present on Admission: No VTE Mechan Device Prophylaxis: SCD's VTE Pharm Prophylaxis ordered?: No Vaginal Delivery Final SRI: 07/17/18 Gestational age: 38 Weeks and 1 Days
[2018-07-04] MEDS: Lactated Ringers 1,000 ML 100 ML IV (17:41)
--- NOTE | 2018-07-04 19:36 | NURSING ---
at 1913, Khloe BAZZI in room to see patient, pt denies nausea, c/o itching
--- NOTE | 2018-07-04 22:27 | NURSING ---
Patient out of bed and up to chair at bedside. Pt tolerated activity well and denies discomfort.
[2018-07-05] VITALS (15 sets, daily range): BP systolic 98–120; BP diastolic 43–70; PULSE 78–99; RESP 15–20; TEMP 36.4–36.8; O2SAT 91–99
--- NOTE | 2018-07-05 01:47 | NURSING ---
Pulse ox alarming and this RN to room, sao2 88% on room air while pt sleeping. pt arouseable by voice. 2L O2 placed on patient via nasal cannula, saO2 up to 98%
[2018-07-05] MEDS: Lactated Ringers 1,000 ML 100 ML IV (04:21)
[2018-07-05] MEDS: Ketorolac 30 MG/ML Syringe IV ×4 (04:22→22:03)
[2018-07-05 04:39] LABS: Hemoglobin 10.4 g/dl (12.0-15.0); Mean Corp Hgb Conc 32.5 g/gl (32-36); Mean Corpuscular Hgb 27.8 pg (27.0-32.0); Mean Corpuscular Volume 85.6 fL (81-99); Mean Platelet Vol. 9.7 fl (6.2-12.0); Platelet Count 205 K/mm3 (150-450); RBC Distribution Width CV 14.5 % (11.6-14.6); RBC Distribution Width SD 45.4 fl (35.1-43.9); Red Blood Count 3.74 M/mm3 (4.2-5.4); White Blood Count 12.1 K/mm3 (4.4-11.0)
[2018-07-05 04:41] LABS: Scan Indicated on CBC? Y/N NO
--- NOTE | 2018-07-05 07:44 | PN.OBGYN_ITS ---
Patient Problems: Active and Suspected Problems (This Medical Record has been edited. Action required.) 38 weeks gestation of (Acute) Oligohydramnios (Acute) delivery delivered (Acute) Subjective: No complaints. Pain is 2/10. She has been out of bed to chair and ambulating. Passing flatus. Tolerates regular diet without nausea or vomiting. Working on latch. Denies heavy lochia. Objective: AVSS - Physical Exam General: Alert, Oriented x3, Cooperative, No apparent distress HEENT: Atraumatic, Normocephalic Lungs: Clear to auscultation, Normal air movement Cardiovascular: Regular rate, Regular Rhythm, Normal S1, Normal S2 Abdomen: Soft, Non Tender, Non-Distended, - - Fundus firm and nontender at umbilicus, incisional dressing c/d/i, lochia scant Extremities: No edema, No Calf Tenderness Neurological: Neuro grossly intact Psych/Mental Status: Normal Affect, Appropriate, Alert and oriented to time, place, person, mood and affect Vital Signs Temp Pulse Resp BP Pulse Ox 97.8 F 84 18 102/53 L 99 07/05/18 04:00 07/05/18 04:00 07/05/18 06:54 07/05/18 04:00 07/05/18 06:54 Oxygen Flow Rate (L/min) 2 Oxygen Delivery Method Room Air Weight: 81.8 kg Body Mass Index (BMI) 33.0 Intake and Output for Last 24 Hours 07/03/18 07/04/18 07/05/18 23:59 23:59 23:59 Intake Total 752 / 752 1921 / 1921 Output Total 425 / 425 700 / 700 Balance 327 / 327 1221 / 1221 Laboratory Tests Past 24 Hrs 07/04/18 07/04/18 07/04/18 12:05 12:05 12:05 WBC 12.4 H RBC 4.27 Hgb 11.8 L Hct 36.3 L MCV 85.0 MCH 27.6 MCHC 32.5 RDW 14.4 RDW Differential 44.4 H Plt Count 286 MPV 10.2 Immature Gran % (Auto) 0.500 Neut % (Auto) 69.1 Lymph % (Auto) 20.2 [place] % (Auto) 8.8 Eos % (Auto) 1.2 Baso % (Auto) 0.2 Absolute Neuts (auto) 8.5 H Absolute Lymphs (auto) 2.50 Total Counted Not Reportable PT 12.4 INR 0.9 APTT 27.5 Total Bilirubin Direct Bilirubin AST ALT Alkaline Phosphatase Total Protein Albumin Globulin Blood Type O POSITIVE Antibody Screen NEGATIVE 07/04/18 07/05/18 12:05 04:30 WBC 12.1 H RBC 3.74 L Hgb 10.4 L Hct 32.0 L MCV 85.6 MCH 27.8 MCHC 32.5 RDW 14.5 RDW Differential 45.4 H Plt Count 205 MPV 9.7 Immature Gran % (Auto) Neut % (Auto) Lymph % (Auto) [place] % (Auto) Eos % (Auto) Baso % (Auto) Absolute Neuts (auto) Absolute Lymphs (auto) Total Counted PT INR APTT Total Bilirubin 0.20 Direct Bilirubin 0.08 AST 15 ALT 14 Alkaline Phosphatase 162 H Total Protein 7.2 Albumin 2.7 L Globulin 4.5 H Blood Type Antibody Screen Medical Necessity - Tobacco Use Smoking Status: Current every day smoker Assessment/Plan All Active Problems (This Medical Record has been edited. Action required.) 38 weeks gestation of (Acute) Oligohydramnios (Acute) delivery delivered (Acute) This is a 28 year-old, G [1], P 0 POD#1 s/p PLTCS for breech presentation, oligohydramnios doing well. - -D/c harper, ambulation encouraged -Reg diet -Routine postop care -Rh positive
[2018-07-05] MEDS: Senna/Docusate Sodium 1 Tablet PO (12:58)
[2018-07-05] MEDS: Prenatal Vits Tablet 1 TABLET PO (12:59)
[2018-07-05] MEDS: 0.9% Saline Lock 10 ML Syringe IV (22:03)
[2018-07-06 01:49] VITALS: BP 109/56; PULSE 85; RESP 16; TEMP 36.7; O2SAT 93
[2018-07-06] MEDS: 0.9% Saline Lock 10 ML Syringe IV ×2 (04:00→10:26)
[2018-07-06] MEDS: Ketorolac 30 MG/ML Syringe IV ×2 (04:00→10:25)
[2018-07-06] MEDS: Senna/Docusate Sodium 1 Tablet PO (04:05)
[2018-07-06 08:10] VITALS: BP 109/71; PULSE 87; RESP 18; TEMP 36.5; O2SAT 97
--- NOTE | 2018-07-06 09:10 | PCM.PN.OB ---
Patient Problems: Active and Suspected Problems (This Medical Record has been edited. Action required.) 38 weeks gestation of (Acute) Oligohydramnios (Acute) delivery delivered (Acute) Subjective: Doing well. pain reasonbly controlled with current medications. Bleeding light. Breast feeding. Objective: Afeb VSS - Physical Exam General: Alert, Oriented x3, Cooperative, No apparent distress Lungs: Clear to auscultation, Normal air movement Cardiovascular: Regular rate, Regular Rhythm Abdomen: Soft, Non Tender, Non-Distended, - - Incision dressing dry Extremities: No edema Skin: No rashes Neurological: Neuro grossly intact Psych/Mental Status: Normal Affect Comment: Lochia light Vital Signs Temp Pulse Resp BP Pulse Ox 98.1 F 85 16 109/56 L 93 07/06/18 01:49 07/06/18 01:49 07/06/18 01:49 07/06/18 01:49 07/06/18 01:49 Oxygen Flow Rate (L/min) 2 Oxygen Delivery Method Room Air Weight: 180 lb 5.41 oz Body Mass Index (BMI) 33.0 Intake and Output for Last 24 Hours 07/04/18 07/05/18 07/06/18 23:59 23:59 23:59 Intake Total 752 / 752 2329 / 2329 Output Total 425 / 425 5050 / 5050 Balance 327 / 327 -2721 / -2721 Medical Necessity - Tobacco Use Smoking Status: Current every day smoker Assessment/Plan All Active Problems (This Medical Record has been edited. Action required.) 38 weeks gestation of (Acute) Oligohydramnios (Acute) delivery delivered (Acute) Doing well on POD#2 s/p LTCS. Will consider discharge home today if feels comfortable with this. Home going instructions and warnings given.
--- NOTE | 2018-07-06 09:15 | DCINST_ITS ---
Discharge Diet: No Restrictions Discharge Activity: Return to Normal Activity, May not drive while taking narcotic pain medications., May Shower Return to work on:: 09/05/18 May resume sexual activity in: 4-6 weeks Call your doctor if your incision/area has: Sudden Increased Bleeding, Increased Pain/ Swelling, Increased Redness, Foul Smelling Discharge, Swelling at the incision site Call your doctor if you observe: Fever of 101 or Higher, Inability to urinate, Inability to have a bowel movement, Using more than one pad per hour, Shortness of breath, Chest pain, Calf discomfort, Uncontrolled pain Remove Dressing in (days):: 3 Cleanse incision/area with: Soap & Water Additional Instructions: If you experience any of the following, contact your healthcare provider. * Bleeding that soaks a pad every hour for 2 hours * Fever 100.4 or higher * Unrelieved incision or abdominal pain * Swelling, redness, discharge or bleeding from your incision or episiotomy site * Your incision begins to separate * Problems urinating (including inability to urinate or burning while urinating). * Visual changes * Severe headache * Flu-like symptoms * Pain or redness in one of both of your breasts * Pain, warmth, tenderness or swelling in your legs, especially the calf area * Frequent nausea and vomiting * Symptoms of depression or anxiety If you experience any of the following, call 911 or go to the nearest Emergency Room. * Chest pain * Problems breathing * Seizure activity * Partial or complete paralysis of a body part, slurred speech, weakness or drooping of the face, or a sudden inability to walk or hold your balance Allergies/Adverse Reactions: Allergies No Known Allergies Allergy (Verified 07/04/18 12:32) Medications to take at Discharge Vits [Prenatabs FA ] 1 tab PO DAILY 06/17/18 Ibuprofen [Motrin] 600 mg PO Q6H PRN PRN #30 tab 07/06/18 Oxycodone [Oxyir] 5 - 10 mg PO Q4H PRN PRN 7 Days #20 tab 07/06/18 The following prescriptions were given: Oxycodone [Oxyir] 5 - 10 mg PO Q4H PRN PRN 7 Days #20 tab PRN Reason: Mod-Severe Pain () Ibuprofen [Motrin] 600 mg PO Q6H PRN PRN #30 tab PRN Reason: pain or cramping Follow-Up: Call to make an appointment with your doctor for an incision check in 1-2 weeks. You will also need a 6 week post- follow up appointment. Test results from this visit will be discussed in further detail at your follow- up appointment, if applicable. Please Follow Up With: Telma Palma MD When: one week Proposed Discharge Date: 07/06/18
--- NOTE | 2018-07-06 09:17 | DS.PCM_ITS ---
Discharge Date and Diagnosis - Problem List Patient Problems: Active and Suspected Problems (This Medical Record has been edited. Action required.) 38 weeks gestation of (Acute) Oligohydramnios (Acute) delivery delivered (Acute) Date of Admission: 07/04/18 Date of Discharge: 07/06/18 - Primary Discharge Diagnosis Active and Suspected Problems (This Medical Record has been edited. Action required.) 38 weeks gestation of (Acute) Oligohydramnios (Acute) delivery delivered (Acute) Hospital Course and Treatment Operations: - - Primary LTCS Summary of Care Provided: The patient is a 28 year old F [admitted for scheduled primary C/S for breech presentation with oligohydramnios at term. This was performed by sudha Torres without complication. She was discharged home on POD#2.] Patient Problems: Active and Suspected Problems (This Medical Record has been edited. Action requ ired.) 38 weeks gestation of (Acute) Oligohydramnios (Acute) delivery delivered (Acute) - Physical Exam Vital Signs Temp Pulse Resp BP Pulse Ox 98.1 F 85 16 109/56 L 93 07/06/18 01:49 07/06/18 01:49 07/06/18 01:49 07/06/18 01:49 07/06/18 01:49 Oxygen Flow Rate (L/min) 2 Oxygen Delivery Method Room Air Weight: 180 lb 5.41 oz Body Mass Index (BMI) 33.0 Intake and Output for Last 24 Hours 07/04/18 07/05/18 07/06/18 23:59 23:59 23:59 Intake Total 752 / 752 2329 / 2329 Output Total 425 / 425 5050 / 5050 Balance 327 / 327 -2721 / -2721 Discharge Diet: No Restrictions Discharge Activity: Return to Normal Activity, May not drive while taking narcotic pain medications., May Shower Return to work on:: 09/05/18 May resume sexual activity in: 4-6 weeks Call your doctor if your incision/area has: Sudden Increased Bleeding, Increased Pain/ Swelling, Increased Redness, Foul Smelling Discharge, Swelling at the incision site Call your doctor if you observe: Fever of 101 or Higher, Inability to urinate, Inability to have a bowel movement, Using more than one pad per hour, Shortness of breath, Chest pain, Calf discomfort, Uncontrolled pain Remove Dressing in (days):: 3 Cleanse incision/area with: Soap & Water Home Medications: Medications to take at Discharge Vits [Prenatabs FA ] 1 tab PO DAILY 06/17/18 Ibuprofen [Motrin] 600 mg PO Q6H PRN PRN #30 tab 07/06/18 Oxycodone [Oxyir] 5 - 10 mg PO Q4H PRN PRN 7 Days #20 tab 07/06/18 Following Prescrptions Were Given to Patient: Oxycodone [Oxyir] 5 - 10 mg PO Q4H PRN PRN 7 Days #20 tab PRN Reason: Mod-Severe Pain (-02/23) Ibuprofen [Motrin] 600 mg PO Q6H PRN PRN #30 tab PRN Reason: pain or cramping Please Follow Up With: Telma Palma MD When: one week Disposition: Home Minutes spent on discharge:: 15 Patient Condition:: Good Medical Necessity - Tobacco Use Smoking Status: Current every day smoker Meaningful Use Info Meaningful Use Diagnoses (Choose all that apply): None applicable
[2018-07-06] MEDS: Prenatal Vits Tablet 1 TABLET PO (12:51)
[2018-07-06 16:15] VITALS: BP 107/72; PULSE 95; RESP 18; TEMP 36.5; O2SAT 97
[2018-07-08 08:26] LABS: Pathology Specimen OB SEE PATHOLOGY REPORT
== END 2018-07-06 17:10 | disposition home or self-care (01) | DRG 787 ==
PROVIDERS: Admitting Provider Obstetrics & Gynecology; Referring Provider Obstetrics & Gynecology; Visit Provider Obstetrics & Gynecology
PROC: 10D00Z1 Extraction of Products of Conception, Low, Open Approach (ICD-10-PCS; CPT 59514; principal; 2018-07-04 15:45)
DX: O32.1XX0 Maternal care for breech presentation, not applicable or unspecified (principal); O41.03X0 Oligohydramnios, third trimester, not applicable or unspecified; O69.81X0 Labor and delivery complicated by cord around neck, without compression, not applicable or unspecified; O99.334 Smoking (tobacco) complicating childbirth; F17.290 Nicotine dependence, other tobacco product, uncomplicated; Z3A.38 38 weeks gestation of pregnancy; Z37.0 Single live birth
CPT/HCPCS: 59025; 59050; 80076; 85025; 85027; 85610; 85730; 86850; 86900; 88307; 99218; J7120; A4216; G0378; J2405